=== PATIENT | female | born 1935 | race Caucasian/White ===

== ENCOUNTER 2019-09-13 17:12 | Emergency (ER) | payer MEDICARE, BC ==
--- NOTE | 2019-09-13 17:49 | ED ---
Lower Extremity - HPI Summary HPI Summary: 83 year old female presents with left calf pain today. States that she had a gel knee injection on Monday. States knee was feeling better. She has been doing strengthening excerises for leg and took walk yesterday and calf became sore. States she may have pulled her leg muscles. States the the area was a little bit red this morning. States that her calf is more swollen than normal. Her calf feels a little bit harder than normal. It just feels like a tightness. She is able to walk normal. Denies any chest pressures or shortness of breath. No history of blood clots. She is nonsmoker. No history of cellulitis. - History of Current Complaint Chief Complaint: EDExtremityLower Stated Complaint: SWOLLEN LT CALF PER PT Time Seen by Provider: 09/13/19 17:42 Pain Intensity: 2 - Allergies/Home Medications Allergies/Adverse Reactions: Allergies Allergy/AdvReac Type Severity Reaction Status Date / Time No Known Allergies Allergy Verified 09/13/19 17:23 Home Medications: Home Medications Atorvastatin* [Lipitor*] 10 mg PO DAILY 09/13/19 [History Confirmed 09/13/19] Meloxicam(NF) [Mobic(NF)] 15 mg PO DAILY 09/13/19 [History Confirmed 09/13/19] Potassium Chlor TAB* [Klor Con ER TAB*] 20 meq PO DAILY 09/13/19 [History Confirmed 09/13/19] amLODIPine TAB* [Norvasc 5 mg TAB*] 10 mg PO DAILY 09/13/19 [History Confirmed 09/13/19] PMH/Surg Hx/FS Hx/Imm Hx Endocrine/Hematology History: Denies: Hx Diabetes Cardiovascular History: Reports: Hx Hypertension Comment Only: Other Cardiovascular Problems/Disorders - BRUNDLE BRANCH BLOCK/ /THICK ROBBINS History: Denies: Hx Renal Disease Musculoskeletal History: Denies: Hx Osteoporosis - Cancer History Hx Chemotherapy: No Hx Radiation Therapy: No - Surgical History Surgery Procedure, Year, and Place: ARTHROSCOPIC KNEE SURG- UNSURE WHICH SIDE Infectious Disease History: No Infectious Disease History: Denies: Traveled Outside the [place] in Last 30 Days Review of Systems Negative: Fever Negative: Chest Pain Negative: Shortness Of Breath Positive: Myalgia - left calf pain All Other Systems Reviewed And Are Negative: Yes Physical Exam Triage Information Reviewed: Yes Vital Signs On Initial Exam: Initial Vitals Temp Pulse Resp BP Pulse Ox 97.7 F 66 17 157/63 97 09/13/19 17:19 09/13/19 17:19 09/13/19 17:19 09/13/19 17:19 09/13/19 17:19 Vital Signs Reviewed: Yes Appearance: Positive: Well-Appearing Skin: Positive: Warm, Dry Head/Face: Positive: Normal Head/Face Inspection Eyes: Positive: Normal, Conjunctiva Clear ENT: Positive: Pharynx normal Respiratory/Lung Sounds: Positive: Clear to Auscultation, Breath Sounds Present Cardiovascular: Positive: Normal, RRR Musculoskeletal: Positive: Other - tenderness left calf with some firmness present, some bruising noted, no erythema, no pain with passive ROM, sensation grossly intact Neurological: Positive: Normal Psychiatric: Positive: Normal Procedures - Sedation Patient Received Moderate/Deep Sedation with Procedure: No Diagnostics - Vital Signs Vital Signs Temp Pulse Resp BP Pulse Ox 09/13/19 17:19 97.7 F 66 17 157/63 97 - Laboratory Result Diagrams: 09/13/19 19:15 09/13/19 19:15 Lab Statement: Any lab studies that have been ordered have been reviewed, and results considered in the medical decision making process. - Ultrasound No standard instances Ultrasound Interpretation Completed By: Radiologist Summary of Ultrasound Findings: IMPRESSION: No acute DVT. Lower Extremity Course/Dx - Course Course Of Treatment: 83 year old female presents with left calf pain today. States that she had a gel knee injection on Monday. States knee was feeling better. She has been doing strengthening excerises for leg and took walk yesterday and calf became sore. States she may have pulled her leg muscles. States the the area was a little bit red this morning. States that her calf is more swollen than normal. Her calf feels a little bit harder than normal. It just feels a tightness. She is able to walk normal. Denies any chest pressures or shortness of breath. No history of blood clots. She is nonsmoker. No history of cellulitis. On exam has tenderness over left calf. No pain with passive range of motion. Has some firmness for compartment but is still soft. Neurovascular intact. lab work wnl. Ultrasound shows no dvt. discussed likely muscle strain. told to follow up with primary. patient understand and agrees with plan. - Diagnoses Differential Diagnosis/HQI/PQRI: Positive: DVT, Sprain, Strain Provider Diagnoses: Pain of left calf - Critical Care Time Critical Care Statement: Critical care time is provided exclusive of any time spent performing procedures. Discharge ED - Sign-Out/Discharge Documenting (check all that apply): Patient Departure - Discharge Plan Condition: Good Disposition: HOME Patient Education Materials: Leg Pain (ED) Referrals: Nancy Lao MD [Primary Care Provider] - Additional Instructions: Ice Elevate Take Tylenol for pain every 6 hours Follow up with primary within 5 days Return to ED if develop any new or worsening symptoms - Billing Disposition and Condition Condition: GOOD Disposition: Home - Attestation Statements Provider Attestation: I was available for consult. This patient was seen by the MEENU. The patient was not presented to, seen by, or examined by me. Edenilson Parker MD
[2019-09-13 19:06] VITALS: BP 158/77
[2019-09-13 19:32] LABS: ABS Eosinophils 0.1 10^3/ul (0-0.6); ABS Monocytes 0.3 10^3/ul (0-0.8); ABS Neutrophils 2.9 10^3/ul (1.5-7.7); Eosinophil % 2.2 %; Hematocrit 38 % (35-47); Hemoglobin 13.3 g/dL (12.0-16.0); Lymphocyte % 22.5 %; Mean Corpuscular HGB Conc 35 g/dL (31-36); Mean Corpuscular Hemoglobin 32 pg (27-31); Mean Corpuscular Volume 92 fL (80-97); Mean Platelet Volume 7.6 fL (7.4-10.4); Nucleated Red Blood Cells % 0.1; Platelet Count 232 10^3/uL (150-450); Red Blood Count 4.13 10^6 /uL (3.70-4.87); Red Cell Distribution Width 14 % (10-15); White Blood Count 4.4 10^3/uL (3.5-10.8)
[2019-09-13 19:46] LABS: INR 0.93 (0.82-1.09)
[2019-09-13 19:54] LABS: Albumin 4.4 g/dL (3.2-5.2); Albumin/Globulin Ratio 1.6 (1-3); BUN/Creatinine Ratio 29.4 (8-20); C Reactive Protein 1.47 mg/L (<8.01); Calcium 9.4 mg/dL (8.6-10.3); EGFR African American 77.3 (>60); EGFR Non-African American 63.9 (>60); Globulin 2.7 g/dL (2-4); Potassium 3.6 mmol/L (3.5-5.0); Total Bilirubin 0.7 mg/dL (0.2-1.0); Total Protein 7.1 g/dL (6.4-8.9)
== END 2019-09-13 21:11 | disposition home or self-care (01) ==
LOC: ED 17:12
DX: M79.662 Pain in left lower leg (principal); I10 Essential (primary) hypertension; Z79.899 Other long term (current) drug therapy
CPT/HCPCS: 36415; 80053; 85025; 85610; 86140; 99282

== ENCOUNTER 2020-01-07 06:31 | Observation (INO) ==
[~2020-01-07 06:31] MED LIST: Buffered Lidocaine 1% SYRIN 1 ml INTRADERM ONE; Dexamethasone IV 4 MG/ML VIAL 1 ml VIAL IV SLOW PU ONE; Dexamethasone IV 4 MG/ML VIAL 1 ml VIAL ONE; Famotidine IV 10 MG/ML 2 ml VIAL (20 mg) IV ONE; Famotidine IV 10 MG/ML 2 ml VIAL (20 mg) ONE; Lactated Ringers 1000 ml BAG 1,000 ML IV SCH; ceFAZolin 2 GM in NS PREMIX 2 GM/100 ML BAG IVPB ONE
[2020-01-07] MEDS ORDERED: Propofol 10 MG/ML 20 ML BTL ONE ×2 (06:43→09:38)
[2020-01-07] MEDS ORDERED: ROPIVACAINE 5 MG/ML 30 ML BTL (0.5%) ONE ×2 (07:11→07:24)
[2020-01-07] MEDS ORDERED: Lidocaine 1% MPF 5 ML VIAL ONE (07:23)
[2020-01-07] MEDS ORDERED: Midazolam 5 mg/ml concentrated 5 mg/ml 1 ml VIAL ONE (07:29)
[2020-01-07] MEDS ORDERED: fentaNYL 100 mcg/2 ml 50 MCG/ML VIAL ONE ×2 (08:23→11:11)
[2020-01-07] MEDS ORDERED: Ondansetron 4 mg VIAL 2 MG/ML 2 ml VIAL ONE (09:09)
[2020-01-07] MEDS ORDERED: fentaNYL 100 mcg/2 ml 50 MCG/ML VIAL IV PRN (09:49)
[2020-01-07] MEDS ORDERED: Naloxone 0.4 mg VIAL 0.4 mg/ml 1 ml VIAL IV PRN (09:49)
[2020-01-07] MEDS ORDERED: DiMENhydriNATE IV 50 mg/ml 1 ml VIAL IV PUSH PRN (09:49)
[2020-01-07] MEDS ORDERED: Lactulose 30 ml UDC PO PRN (10:33)
[2020-01-07] MEDS ORDERED: diPHENhydraMINE 25 mg TAB PO PRN (10:33)
[2020-01-07] MEDS ORDERED: Morphine 2 MG/ML SYRINGE IV PRN (10:33)
[2020-01-07] MEDS ORDERED: diPHENhydraMINE IV 50 MG/ML 1 ml VIAL (BENADRYL) IV PRN (10:33)
[2020-01-07] MEDS ORDERED: oxyCODONE/Acetamin 5/325 mg TAB PO PRN (10:33)
[2020-01-07] MEDS ORDERED: Magnesium Hydroxide LIQ 30 ML UDC PO PRN (10:33)
[2020-01-07] MEDS ORDERED: Ondansetron 4 mg VIAL 2 MG/ML 2 ml VIAL IV PRN (10:33)
[2020-01-07] MEDS ORDERED: Ondansetron ODT 4 mg TAB 4 MG TAB PO PRN (10:33)
[2020-01-07] MEDS: Lactated Ringers 1000 ml BAG 1,000 ML IV SCH ×2 (11:57→22:39)
[2020-01-07] MEDS: ceFAZolin 1 GM ADVAN 1 GM in NS 0.9% 50 ML 50 ML IVPB SCH ×2 (17:04→23:59)
[2020-01-07] MEDS: oxyCODONE/Acetamin 5/325 mg TAB PO PRN (20:05)
[2020-01-07] MEDS: Magnesium Hydroxide LIQ 30 ML UDC PO SCH (21:41)
[2020-01-08] MEDS ORDERED: Polyethylene Glycol 3350 17 GM PACKET PO PRN (00:01)
[2020-01-08] MEDS: oxyCODONE/Acetamin 5/325 mg TAB PO PRN ×3 (02:58→12:51)
[2020-01-08 06:45] LABS: Hematocrit 31 % (35-47); Hemoglobin 10.8 g/dL (12.0-16.0); Mean Platelet Volume 7.9 fL (7.4-10.4); Platelet Count 187 10^3/uL (150-450)
[2020-01-08 07:18] LABS: Calcium 8.3 mg/dL (8.6-10.3); EGFR African American 105.1 (>60); EGFR Non-African American 86.8 (>60); Potassium 3.2 mmol/L (3.5-5.0)
[2020-01-08] MEDS ORDERED: Potassium Chlor 20 meq TAB.ER PO ONE (07:20)
[2020-01-08] MEDS: ceFAZolin 1 GM ADVAN 1 GM in NS 0.9% 50 ML 50 ML IVPB SCH (07:37)
[2020-01-08] MEDS: Magnesium Hydroxide LIQ 30 ML UDC PO SCH (07:37)
[2020-01-08] MEDS ORDERED: Cholecalciferol (VIT D3) 1,000 unit TAB PO SCH (09:00)
[2020-01-08] MEDS ORDERED: Vitamin THERAPEUTIC TAB PO SCH (09:00)
[2020-01-08] MEDS ORDERED: Potassium Chlor 20 meq TAB.ER PO SCH (09:00)
[2020-01-08 12:39] VITALS: BP 106/48
== END 2020-01-08 15:11 | disposition home or self-care (01) ==
LOC: AA 06:31 → INTOOBSV 06:31 → SSU 10:33
PROVIDERS: ADMIT Orthopaedic Surgery Adult Reconstructive Orthopaedic Surgery; ATTEND Orthopaedic Surgery Adult Reconstructive Orthopaedic Surgery

== ENCOUNTER 2022-06-16 08:29 | Observation (INO) ==
[~2022-06-16 08:29] MED LIST changes: -Dexamethasone IV 4 MG/ML VIAL 1 ml VIAL IV SLOW PU ONE; -Famotidine IV 10 MG/ML 2 ml VIAL (20 mg) IV ONE; -Famotidine IV 10 MG/ML 2 ml VIAL (20 mg) ONE; +Naloxone 0.4 mg VIAL 0.4 mg/ml 1 ml VIAL IV PRN; +Ondansetron 4 mg VIAL 2 MG/ML 2 ml VIAL IV PRN; +Ondansetron 4 mg VIAL 2 MG/ML 2 ml VIAL ONE; -ceFAZolin 2 GM in NS PREMIX 2 GM/100 ML BAG IVPB ONE; +fentaNYL 100 mcg/2 ml 50 MCG/ML VIAL IV PRN; +oxyCODONE/Acetamin 5/325 mg TAB PO PRN
[2022-06-16] MEDS ORDERED: ceFAZolin 2 GM in NS PREMIX 2 GM/100 ML BAG IVPB ONE (09:33)
[2022-06-16] MEDS ORDERED: Midazolam 2 mg/2 ml VIAL 1 mg/ml 2 ml VIAL (2 mg) ONE (10:43)
[2022-06-16] MEDS ORDERED: Acetaminophen IV 1 GM/100ML 1,000 MG/100 ML BAG IV ONE (11:59)
[2022-06-16] MEDS ORDERED: Lactulose 30 ml UDC PO PRN (13:06)
[2022-06-16] MEDS ORDERED: Morphine 2 MG/ML SYRINGE IV PRN (13:06)
[2022-06-16] MEDS ORDERED: Ondansetron 4 mg VIAL 2 MG/ML 2 ml VIAL IV PRN (13:06)
[2022-06-16] MEDS ORDERED: Ondansetron ODT 4 mg TAB 4 MG TAB PO PRN (13:06)
[2022-06-16] MEDS ORDERED: Magnesium Hydroxide LIQ 30 ML UDC PO PRN (13:06)
[2022-06-16] MEDS ORDERED: Prochlorperazine 5 mg/ml 2 ml VIAL (10 mg) IV PRN (13:11)
[2022-06-16] MEDS ORDERED: oxyCODONE/Acetamin 5/325 mg TAB ONE (14:16)
[2022-06-16] MEDS: Lactated Ringers 1000 ml BAG 1,000 ML IV SCH (15:36)
[2022-06-16] MEDS: ceFAZolin 1 GM ADVAN 1 GM in NS 0.9% 50 ML 50 ML IVPB SCH (20:54)
[2022-06-16] MEDS: Magnesium Hydroxide LIQ 30 ML UDC PO SCH (20:55)
[2022-06-17] MEDS: Lactated Ringers 1000 ml BAG 1,000 ML IV SCH (02:25)
[2022-06-17] MEDS: ceFAZolin 1 GM ADVAN 1 GM in NS 0.9% 50 ML 50 ML IVPB SCH ×2 (04:01→10:52)
[2022-06-17 06:22] LABS: Hematocrit 30 % (35-47); Hemoglobin 10.2 g/dL (12.0-16.0); Mean Platelet Volume 7.9 fL (7.4-10.4); Platelet Count 162 10^3/uL (150-450)
[2022-06-17 06:40] LABS: Calcium 8.3 mg/dL (8.6-10.3); Creatinine, Serum 0.87 mg/dL (0.51-0.95); Potassium 3.5 mmol/L (3.5-5.0); eGFR CKD-EPI 64.8 (>60)
[2022-06-17] MEDS: Magnesium Hydroxide LIQ 30 ML UDC PO SCH (08:26)
[2022-06-17] MEDS ORDERED: Vitamin THERAPEUTIC TAB PO SCH (09:00)
[2022-06-17 11:00] VITALS: BP 122/72
== END 2022-06-17 14:40 | disposition home or self-care (01) ==
LOC: SSU 08:29 → OR 08:29
PROVIDERS: ADMIT Orthopaedic Surgery Adult Reconstructive Orthopaedic Surgery; ATTEND Orthopaedic Surgery Adult Reconstructive Orthopaedic Surgery